=== PATIENT | male | born 1955 | race Caucasian/White ===

== ENCOUNTER 2017-08-14 18:12 | Emergency (ER) | payer SELFPAY ==
[~2017-08-14] VITALS: Ht 167.6 cm; Wt 83.5 kg
[2017-08-14 18:27] VITALS: BP 139/87
[2017-08-14] MEDS ORDERED: ONDANSETRON HCL 4MG/2ML VIAL IV STA (18:42)
[2017-08-14] MEDS ORDERED: SODIUM CHLORIDE 0.9% 1,000 ML IV ONE (18:42)
[2017-08-14] MEDS ORDERED: KETOROLAC 30MG/ML VIAL IV STA (18:42)
[2017-08-14 19:01] LABS: BASOPHILS % 0.7 % (0.0-2.0); EOSINOPHILS % 0.3 % (0.0-5.0); HEMATOCRIT. 43.7 % (42.0-52.0); HEMOGLOBIN. 15.2 g/dL (14.0-18.0); LYMPHOCYTES % 12.5 % (20.0-50.0); MEAN CORPUSCULAR HEMOGLOBIN 29.4 pg (28.0-32.0); MEAN CORPUSCULAR VOLUME 84.4 fL (80.0-94.0); MEAN PLATELET VOLUME 7.9 fl (7.4-10.4); MONOCYTES % 6.1 % (2.0-8.0); NEUTROPHILS % 80.4 % (40.0-76.0); PLATELET 311 x1000/uL (130-400); RED BLOOD CELL COUNT 5.17 mill/uL (4.7-6.1); RED CELL DISTRIBUTION WIDTH 13.5 % (11.6-14.6)
[2017-08-14 19:07] LABS: INR 1.1
[2017-08-14 19:09] LABS: CHLORIDE 104 mEq/L (98-107)
[2017-08-14 19:14] LABS: CARBON DIOXIDE 29 mEq/L (21-32)
== END 2017-08-14 22:00 | disposition left against medical advice (07) ==
LOC: ER 18:12
DX: K85.90 Acute pancreatitis without necrosis or infection, unspecified (principal)
CPT/HCPCS: 36415; 80053; 83690; 85025; 85610; 93005; 99285; J7030